=== PATIENT | female | born 1995 | race Caucasian/White ===

== ENCOUNTER → 2020-03-26 | Outpatient (CLI) | payer BC, OTHER ==
[~2020-03-26] MED LIST: COLACE 100MG C100 MG PO
== END ==
LOC: LAB 10:12
DX: Z32.00 Encounter for pregnancy test, result unknown (principal)
CPT/HCPCS: 36415; 84702

== ENCOUNTER → 2020-03-28 | Outpatient (CLI) | payer BC, OTHER | LOC: LAB 10:42 | DX: Z32.00 Encounter for pregnancy test, result unknown (principal) | CPT/HCPCS: 36415; 84702 ==

== ENCOUNTER 2020-04-25 13:28 | Emergency (ER) | payer BC, OTHER | END 2020-04-25 16:27 | disposition home or self-care (01) | LOC: ER1 13:28 | DX: O20.0 Threatened abortion (principal); Z3A.08 8 weeks gestation of pregnancy | CPT/HCPCS: 76817; 84702; 86900; 86901; 99284 ==

== ENCOUNTER 2020-08-24 13:01 | Outpatient (CLI) | payer BC, OTHER | END 2020-08-24 15:41 | disposition home or self-care (01) | LOC: GENOP 13:01 | DX: O99.891 Other specified diseases and conditions complicating pregnancy (principal); N89.8 Other specified noninflammatory disorders of vagina; R10.9 Unspecified abdominal pain; O99.332 Smoking (tobacco) complicating pregnancy, second trimester; F17.290 Nicotine dependence, other tobacco product, uncomplicated; O99.342 Other mental disorders complicating pregnancy, second trimester; F41.9 Anxiety disorder, unspecified; Z3A.25 25 weeks gestation of pregnancy | CPT/HCPCS: 82731; 83518; G0463 ==

== ENCOUNTER 2020-11-27 05:32 | Inpatient (IN) | payer BC, OTHER ==
[~2020-11-27] VITALS: Ht 154.9 cm; Wt 77.1 kg
[2020-11-27] MEDS ORDERED: IBUPROFEN800 MG PO (07:56)
[2020-11-27] MEDS ORDERED: DOCUSATE SODIU100 MG PO (07:56)
[2020-11-27] MEDS ORDERED: HYDROCODONE-AC1 EAC1 PO (07:56)
[2020-11-28 08:47] LABS: HEMOGLOBIN 10.5 gm/dl (12.3-15.3)
== END 2020-11-29 16:30 | disposition home or self-care (01) | DRG 788 ==
LOC: OB 05:32
PROVIDERS: Obstetrics & Gynecology; ADMIT Obstetrics & Gynecology
PROC: 4A1HXCZ Monitoring of Products of Conception, Cardiac Rate, External Approach (ICD-10-PCS; 2020-11-27)
PROC: 10D00Z1 Extraction of Products of Conception, Low, Open Approach (ICD-10-PCS; principal; 2020-11-27 07:30)
DX: O34.211 Maternal care for low transverse scar from previous cesarean delivery (principal); Z3A.39 39 weeks gestation of pregnancy; Z37.0 Single live birth; Z20.822 Contact with and (suspected) exposure to COVID-19; F41.9 Anxiety disorder, unspecified; O99.02 Anemia complicating childbirth; D50.9 Iron deficiency anemia, unspecified; Z80.9 Family history of malignant neoplasm, unspecified; O99.344 Other mental disorders complicating childbirth
CPT/HCPCS: 36415; 81001; 82800; 85014; 85018; 85025; C9113; J0690; J1170; J1200; J2274; J2405; J2590; J2704; J7120